=== PATIENT | male | born 1980 | race Caucasian/White ===

== ENCOUNTER 2016-11-15 22:03 | Inpatient (IN) | payer MEDICAID, OTHER ==
[~2016-11-15] VITALS: Ht 170.2 cm; Wt 97.5 kg
[2016-11-15] MEDS ORDERED: morphine 4 MG/ML VIAL IV STA (22:54)
[2016-11-15] MEDS ORDERED: ONDANSETRON 4 MG INJ IV STA (22:54)
[2016-11-15] MEDS ORDERED: SOD CHLORIDE 0.9% 500 ML IV STA (22:54)
[2016-11-15 23:19] LABS: ADD SCAN DIFF NO
[2016-11-15 23:27] LABS: ABNORMAL IP MESSAGE 1; HEMATOCRIT 17.6 % (42.0-52.0); MEAN CORPUSCULAR HEMOGLOBIN 21.8 pg (29.0-33.0); MEAN CORPUSCULAR HGB CONC 27.8 g/dl (32.0-37.0); MEAN CORPUSCULAR VOLUME 78.2 fl (82.0-101.0); MEAN PLATELET VOLUME 11.4 fl (7.4-10.4); PLATELET COUNT 185 10^3/UL (140-415); RED BLOOD COUNT 2.25 10^6/ul (4.70-6.10); RED CELL DISTRIBUTION WIDTH 20.8 % (11.5-14.5); WHITE BLOOD COUNT 16.7 10^3/ul (4.8-10.8)
[2016-11-15 23:35] LABS: HEMOGLOBIN 4.9 g/dl (14.0-18.0)
[2016-11-15 23:39] LABS: ALBUMIN 3.6 g/dl (3.3-4.9); ALBUMIN/GLOBULIN RATIO 1.28; CALCIUM 8.5 mg/dl (8.4-10.2); CREATININE 1.19 mg/dl (0.61-1.24); POTASSIUM 3.9 mmol/L (3.5-5.1); TOTAL PROTEIN 6.4 g/dl (6.1-8.1)
--- NOTE | 2016-11-15 23:46 | RADRPT ---
PROCEDURE: XR Chest. CLINICAL INDICATION: Chest pain. TECHNIQUE: Portable AP upright view of the chest was obtained. COMPARISON: None. FINDINGS: The cardiomediastinal silhouette is within normal limits. The lungs are clear. There is no evidenc e for pleural effusion, pneumothorax or pulmonary vascular congestion. The osseous structures are i ntact with no evidence for acute abnormality. RPTAT:HJJR IMPRESSION: No evidence for acute intrathoracic pathology. Physician Clarisse Date Time Electronically viewed and signed by Physician Clarisse on 11/15/2016 23:45 JR/
[2016-11-15 23:50] LABS: TROPONIN-I 0.051 ng/ml (0.00-0.12)
[2016-11-15] MEDS ORDERED: ONDANSETRON 4 MG INJ IV ONE (23:52)
[2016-11-16] VITALS (22 sets, daily range): BP systolic 81–135; BP diastolic 23–66; PULSE 97–106; RESP 15–19; TEMP 99; Ht 170.2 cm; Wt 97.5 kg
--- NOTE | 2016-11-16 00:24 | RADRPT ---
PROCEDURE: CT abdomen and pelvis without contrast. CLINICAL INDICATION: Abdominal pain TECHNIQUE: CT scan of the abdomen and pelvis without contrast was performed. Sagittal and coronal reformatted images were obtained from the axial source images. CTDI = 20.78 mGy; DLP = 1344.27 mGy- cm COMPARISON: None available. FINDINGS: Visualized lower thorax: The lung bases are clear. There is no evidence for pleural effusion. Liver, gallbladder, pancreas and spleen: Diffuse low attenuation of the liver is compatible with he patic steatosis with elongation of the left hepatic lobe and a slightly nodular contour concerning f or changes of cirrhosis. There is no evidence for a liver mass or ductal dilatation. The gallbladd er is unremarkable. No common bile duct abnormality is demonstrated. The pancreas is unremarkable. Splenomegaly of approximately 16.1 cm maximum dimension is noted. Adrenal glands and genitourinary system: The adrenal glands are normal bilaterally. The kidneys are normal and size, contour and attenuation with no evidence for masses, calculi or hydronephrosis. T he ureters are unremarkable. The urinary bladder is contracted which likely explains the 6 mm wall t hickening, cystitis is difficult to exclude in the proper clinical setting. The prostate gland is n ormal in size. The scrotum shows no abnormality. Gastrointestinal system: Small tubular structures adjacent to the visualized distal esophagus are c oncerning for varices. The stomach is fluid-filled and mildly distended without wall thickening. T he small bowel is normal in caliber with no ileus, obstruction or wall thickening. The appendix and surrounding fat are within the limits of normal. The colon shows no evidence for wall thickening o r acute abnormality. There is no evidence for colitis or diverticulitis. Peritoneum, retroperitoneum, lymph nodes and vessels: The abdominal aorta is normal in caliber. The re is no evidence for atherosclerotic calcification. The inferior vena cava is unremarkable. There is no evidence for adenopathy or mass. There is no ascites. Osseous structures and musculoskeletal findings: There is no fracture, lytic or blastic lesion. De generative disk narrowing at T11-12 and L5-S1 is noted. No muscular abnormality or soft tissue path ology is present. RPTAT:HJJR IMPRESSION: 1. Nodular appearance to the liver is consistent with cirrhosis with portal hypertension and splenom egaly, para esophageal varices are suspected. 2. Mild urinary bladder wall thickening likely related to a partially contracted state but cystitis is difficult to exclude and urinalysis correlation should be considered. 3. Fluid-filled stomach is likely physiologic without evidence of wall thickening to suggest gastri tis, gastroparesis is a possibility in the proper clinical setting. Physician lCarisse Date Time Electronically viewed and signed by Asad Mac Physician on 11/16/2016 00:24 JR/
--- NOTE | 2016-11-16 01:26 | ERA ---
ER Documentation Chief Complaint Date/Time DATE: 11/16/16 TIME: 01:24 Chief Complaint abd pain x 2 days +n/v HPI This is a 28-year-old gentleman because of abdominal pain for 2 days with nausea vomiting. Denies any fevers or chills. Pain is mild to moderate intensity, diffusely located. Denies any other current issues. Denies any changes in stool. Denies any hemorrhoidal issues. No other current complaints. ROS All systems reviewed and are negative except as per history of present illness. Medications Home Meds No Active Prescriptions or Reported Meds Allergies Allergies: Coded Allergies: No Known Allergy (Unverified , 11/15/16) PMhx/Soc Medical and Surgical Hx: pt denies Medical Hx, pt denies Surgical Hx Hx Alcohol Use: Yes (6 BEERS/DAY) Hx Substance Use: No Hx Tobacco Use: No Smoking Status: Never smoker Physical Exam Vitals Vital Signs Date Time Temp Pulse Resp B/P Pulse Ox O2 Delivery O2 Flow Rate FiO2 11/16/16 01:00 124 23 134/75 98 Room Air 11/16/16 00:15 127 14 97/83 100 Room Air 11/15/16 23:38 99.6 129 24 102/65 100 Room Air 11/15/16 22:34 98.6 146 18 136/63 99 Physical Exam Const: [] Head: Atraumatic Eyes: Normal Conjunctiva ENT: Normal External Ears, Nose and Mouth. Neck: Full range of motion..~ No meningismus. Resp: Clear to auscultation bilaterally Cardio: Regular rate and rhythm, no murmurs Abd: Soft, non tender, non distended. Normal bowel sounds Skin: No petechiae or rashes Back: No midline or flank tenderness Ext: No cyanosis, or edema Neur: Awake and alert Psych: Normal Mood and Affect Result Diagram: 11/15/16 2300 11/15/16 2300 Results 24 hrs Laboratory Tests Test 11/15/16 23:00 White Blood Count 16.710^3/ul Red Blood Count 2.2510^6/ul Hemoglobin 4.9g/dl Hematocrit 17.6% Mean Corpuscular Volume 78.2fl Mean Corpuscular Hemoglobin 21.8pg Mean Corpuscular Hemoglobin Concent 27.8g/dl Red Cell Distribution Width 20.8% Platelet Count 10556^3/UL Mean Platelet Volume 11.4fl Neutrophils % % Lymphocytes % % Monocytes % % Eosinophils % % Basophils % % Nucleated Red Blood Cells % /100WBC Neutrophils # 10^3/ul Lymphocytes # 10^3/ul Monocytes # 10^3/ul Eosinophils # 10^3/ul Basophils # 10^3/ul Nucleated Red Blood Cells # 10^3/ul Sodium Level 140mmol/L Potassium Level 3.9mmol/L Chloride Level 103mmol/L Carbon Dioxide Level 14mmol/L Anion Gap 27 Blood Urea Nitrogen 23mg/dl Creatinine 1.19mg/dl Glucose Level 333mg/dl Calcium Level 8.5mg/dl Total Bilirubin 3.0mg/dl Direct Bilirubin 0.00mg/dl Indirect Bilirubin 3.0mg/dl Aspartate Amino Transf (AST/SGOT) 38IU/L Alanine Aminotransferase (ALT/SGPT) 20IU/L Alkaline Phosphatase 68IU/L Troponin I 0.051ng/ml Total Protein 6.4g/dl Albumin 3.6g/dl Globulin 2.80g/dl Albumin/Globulin Ratio 1.28 Lipase 116U/L Current Medications Medications (Trade) Dose Ordered Sig/Micheal Route PRN Reason Start Time Stop Time Status Last Admin Dose Admin Sodium Chloride (NS) 500 ml @ 500 mls/hr Q1H STAT IV 11/15/16 22:54 11/15/16 23:53 DC 11/15/16 23:02 Morphine Sulfate (morphine) 4 mg ONCE STAT IV 11/15/16 22:54 11/15/16 22:57 DC 11/15/16 23:02 Ondansetron HCl (Zofran Inj) 4 mg ONCE STAT IV 11/15/16 22:54 11/15/16 22:57 DC 11/15/16 23:02 Ondansetron HCl (Zofran Inj) 4 mg ONCE ONCE IV 11/15/16 23:52 11/15/16 23:53 DC Procedures/MDM Medical decision making: Patient with evidence of severe anemia likely secondary to acute on chronic lower GI bleed. Patient will be admitted to Dr. Vázquez. Typed and crossed for 3 units here in the emergency department. Departure Diagnosis: Primary Impression: Abdominal pain Qualified Code: R10.9 - Abdominal pain, unspecified location Additional Impression: Anemia Qualified Code: D64.9 - Anemia, unspecified type Condition: Serious MOGHADAM,ZOILA S. Nov 16, 2016 01:26
[2016-11-16 02:41] LABS: BASOPHIL # 0.2 10^3/ul (0.0-0.1); LYMPHOCYTES # 1.8 10^3/ul (0.8-2.9); MONOCYTE # 1.2 10^3/ul (0.3-0.9); NEUTROPHIL # 13.2 10^3/ul (1.6-7.5)
[2016-11-16 02:42] LABS: ANISOCYTOSIS 1+; HYPOCHROMASIA 1+; MICROCYTOSIS 1+
[2016-11-16 02:43] LABS: PLATELET ESTIMATE PLT APPEAR ADEQUATE
[2016-11-16] MEDS ORDERED: ONDANSETRON 4 MG INJ IV PRN ×2 (07:30→19:00)
[2016-11-16] MEDS ORDERED: NACL 0.9% 3 ML SYG IV SCH (07:30)
[2016-11-16] MEDS ORDERED: OCTREOTIDE 50 MCG in SOD CHLORIDE 0.9% 50 ML IVPB ONE (07:30)
[2016-11-16] MEDS ORDERED: LORAZEPAM 2 MG INJ IV PRN ×2 (07:30→19:00)
[2016-11-16] MEDS ORDERED: PANTOPRAZOLE IV 80 MG in SOD CHLORIDE 0.9% 100 ML IVPB ONE (07:30)
[2016-11-16] MEDS ORDERED: morphine 2 MG INJ IV PRN (07:30)
[2016-11-16] MEDS: SOD CHLORIDE 0.9% 1,000 ML IV SCH ×2 (08:13→17:21)
[2016-11-16] MEDS: MULTIVITAMINS 10 ML, THIAMINE 100 MG, FOLIC ACID 1 MG in SOD CHLORIDE 0.9% 1,000 ML IVPB SCH (09:00)
--- NOTE | 2016-11-16 09:03 | HP ---
DATE OF ADMISSION: 11/15/2016 CHIEF COMPLAINT: Gastrointestinal bleed. HISTORY OF PRESENT ILLNESS: The patient is a 36-year-old male with a history of alcohol abuse, no p revious diagnosis of liver cirrhosis. The patient presents with gastrointestinal bleed for the past several days as well as melena. The patient has no reported history of GI bleed in the past. He s tates that he has been drinking heavily for the past few days, but in general has been drinking heav amada for the past several years. In the ED, the patient was found to be anemic with hemoglobin of 4. 9. The patient currently states that his nausea has improved. The patient does report some mild lo ose stools. Once again, patient also endorsed some melena. PAST MEDICAL HISTORY: Alcohol abuse, otherwise negative. PAST SURGICAL HISTORY: Denies. HOME MEDICATIONS: None reported. ALLERGIES: NO KNOWN DRUG ALLERGIES. FAMILY HISTORY: Denies. SOCIAL HISTORY: Alcohol abuse, denies tobacco or drug abuse. REVIEW OF SYSTEMS: A 12-point review of systems negative except that discussed in HPI. PHYSICAL EXAMINATION: VITAL SIGNS: Temperature is 99.0, pulse 129, respiratory rate 15, BP is 136/80, saturation 100% on room air. GENERAL: Mild distress, alert and oriented. HEENT: Normocephalic, atraumatic. LUNGS: Clear to auscultation. CARDIOVASCULAR: Regular rate and rhythm. ABDOMEN: Nondistended, nontender, soft, obese. EXTREMITIES: No clubbing, cyanosis, or edema. LABORATORY TESTS: White count 16.7, hemoglobin 4.9, platelets are at 185. Chemistry within normal limits except for carbon dioxide is 14, anion gap is 27, BUN is 23, glucose 333, total bilirubin is 3.0. DIAGNOSTICS: Chest x-ray shows no evidence of acute intrathoracic pathology. Abdominal pelvis CT l arge appearance of the liver consistent with cirrhosis, portal hypertension, splenomegaly, paraesoph ageal varices are suspected, bladder wall thickening likely related to partially contracted , d ifficult to exclude. Urinalysis correlation should be considered. Fluid-filled stomach is likely p hysiological, without evidence of wall thickening suggesting gastritis, gastroparesis possibility in the setting. ASSESSMENT AND PLAN: 1. Upper gastrointestinal bleed, likely secondary to esophageal varices from portal hypertension fr om underlying alcohol abuse. We will consult GI. We will start the patient on Protonix and octreot irma. 2. Severe anemia secondary to gastrointestinal bleed. Will transfuse 2 units packed red blood cell s. 3. Liver cirrhosis secondary to alcohol abuse. Patient has been advised he needs to stop drinking. 4. Leukocytosis, likely reactive, but will obtain a UA to rule out cystitis. 5. Anion gap acidosis likely secondary to lactic acidosis. Will check lactic level. 6. Hyperglycemia, could be reactive, but will evaluate for diabetes. Patient has no reported histo ry of diabetes. 7. Prophylaxis. SCDs. Dictated By: JOSE HU MD BS/NTS Conf#: [id number] DID#: [id number]
[2016-11-16] MEDS: OCTREOTIDE 1 MG in SOD CHLORIDE 0.9% 95 ML IV SCH (09:21)
[2016-11-16] MEDS: PANTOPRAZOLE IV 80 MG in SOD CHLORIDE 0.9% 100 ML IV SCH ×2 (09:31→18:00)
[2016-11-16 10:29] LABS: AADO2 Arterial 36.7 mmHg (7.0-24.0); Allen Test ACCEPTAB; Arterial Base Excess -4.3 mmol/L (-3.0-3); Arterial COHb 0.5 % (0.0-3.0); Arterial Fraction of Oxyhgb 94.3 % (93.0-99.0); Arterial HCO3 18.7 mmol/L (22.0-26.0); Arterial MetHb 0.5 % (0.0-1.5); Arterial Total Hemglobin 6.9 g/dl (12.0-18.0); MODE ROOM AIR
[2016-11-16] MEDS ORDERED: GLUCOSE GEL 15 GRAM TUBE PO PRN ×2 (10:30)
[2016-11-16] MEDS ORDERED: DEXTROSE 50% 50 ML SYRINGE IV PRN ×2 (10:30)
[2016-11-16] MEDS ORDERED: GLUCAGON 1 MG INJ IM PRN (10:30)
[2016-11-16] MEDS ORDERED: GLUCOSE GEL 15 GRAM TUBE BUCCAL PRN (10:30)
--- NOTE | 2016-11-16 15:02 | CONS ---
Date/Time of Note Date/Time of Note DATE: 11/16/16 TIME: 14:43 Assessment/Plan Assessment/Plan Additional Assessment/Plan Assessment * Hematemesis/Anemia T/C Esophageal varices bleeding vs peptic ulcer disease vs others * Cirrhosis,liver CT scan Nodular appearance to the liver is consistent with cirrhosis with portal hypertension and splenomegaly, para esophageal varices are suspected. Plan * EGD today risks and benefit explained to patient and agreed with the planned procedure * PPI drip * Octreotide drip * Monitor Hemoglobin and hematocrit Q6 and transfuse per protocol Consultation Date/Type/Reason Admit Date/Time Date of Consultation: Nov 16, 2016 Type of Consultation: Gastroenterology Reason for Consultation anemia/upper gi bleed Referring Provider: NAN HERNANDEZ of Present Illness 36 year old male who presented in the emergency room because of vomiting of blood for the past 3 days with associated abdominal pain.Hematemesis was about 3 tbs per bout occurring for the pst 3 days hence consult.He is a heavy drinker consuming 8 bottles of beer daily for the past 3 years.He had multiple episodes of hematemesis but has not been diagnosed with Cirrhosis Emergency room course revealed anemia with hemoglobin of 4.9 and blood transfusion has been started. Ct scan of abdomen . Nodular appearance to the liver is consistent with cirrhosis with portal hypertension and splenomegaly, para esophageal varices are suspected. . Mild urinary bladder wall thickening likely related to a partially contracted state but cystitis is difficult to exclude and urinalysis correlation should be considered. Fluid-filled stomach is likely physiologic without evidence of wall thickening to suggest gastritis, gastroparesis is a possibility in the proper clinical setting. Presently,patient denies abdominal pain,no episodes of of hematemesis.denies any hematochezia,chest pain nor shortness of breath. We explained the planned procedure and patient agreed with the planned procedure Constitutional: improved, no complaints Eyes: no complaints ENT: no complaints Respiratory: no complaints Cardiovascular: no complaints Gastrointestinal: blood, flatus, vomiting Genitourinary: no complaints Musculoskeletal: no complaints Skin: no complaints Neurologic: no complaints Endocrine: no complaints Lymphatic: no complaints Psychological: nl mood/affect, no complaints Immunologic: no complaints Past Surgical History Past Surgical Hx: no surgical history Family History Significant Family History: no pertinent family hx Social History Alcohol Use: heavy (8 bottles of beer daily x 3 years) Smoking Status: Never smoker Exam/Review of Systems Vital Signs Vitals Vital Signs Date Time Temp Pulse Resp B/P Pulse Ox O2 Delivery O2 Flow Rate FiO2 11/16/16 11:15 99.9 150 24 137/81 100 Room Air Intake and Output 11/15/16 11/15/16 11/16/16 15:00 23:00 07:00 Intake Total 500 ml Balance 500 ml Exam Constitutional: alert, oriented, well developed Psych: nl mood/affect, no complaints Head: atraumatic, normocephalic Eyes: EOMI, PERRL, nl conjunctiva, nl lids, nl sclera ENMT: nl external ears & nose, nl lips & teeth, nl nasal mucosa & septum Neck: non-tender, supple Respiratory: clear to auscultation, normal air movement Cardiovascular: nl pulses, regular rate and rhythm Gastrointestinal: nl liver, spleen, non-tender, soft Musculoskeletal: nl extremities to inspection, nl gait and stance Extremities: normal pulses Neurological: MODELING AGENCY MANAGER II-XII intact, nl mental status, nl speech, nl strength Skin: nl turgor, No rash or lesions Lymph: nl lymph nodes Results Result Diagram: 11/15/16 2300 11/15/16 2300 Results 24 hrs Laboratory Tests Test 11/15/16 23:00 11/16/16 08:19 11/16/16 09:48 White Blood Count 16.7 H Red Blood Count 2.25 L Hemoglobin 4.9 *L Hematocrit 17.6 L Mean Corpuscular Volume 78.2 L Mean Corpuscular Hemoglobin 21.8 L Mean Corpuscular Hemoglobin Concent 27.8 L Red Cell Distribution Width 20.8 H Platelet Count 185 Mean Platelet Volume 11.4 H Neutrophils % 79.0 H Band Neutrophils % 2.0 Lymphocytes % 11.0 L Monocytes % 7.0 Eosinophils % Basophils % 1.0 Nucleated Red Blood Cells % Neutrophils # 13.2 H Lymphocytes # 1.8 Monocytes # 1.2 H Eosinophils # Basophils # 0.2 H Nucleated Red Blood Cells # Platelet Estimate PLT APPEAR ADEQUATE Hypochromasia 1+ Anisocytosis 1+ Microcytosis 1+ Macrocytosis 1+ Sodium Level 140 Potassium Level 3.9 Chloride Level 103 Carbon Dioxide Level 14 L Anion Gap 27 H Blood Urea Nitrogen 23 H Creatinine 1.19 Glucose Level 333 H Calcium Level 8.5 Total Bilirubin 3.0 H Direct Bilirubin 0.00 Indirect Bilirubin 3.0 H Aspartate Amino Transf (AST/SGOT) 38 Alanine Aminotransferase (ALT/SGPT) 20 Alkaline Phosphatase 68 Troponin I 0.051 Total Protein 6.4 Albumin 3.6 Globulin 2.80 Albumin/Globulin Ratio 1.28 Lipase 116 Lactic Acid Level 8.9 *H Blood Gas Specimen Source Blood arterial Arterial Blood Date Drawn 11/16/2016 10:05:40 AM Arterial Blood pH (Temp corrected) 7.478 H Arterial Blood pCO2 (Temp correct) 25.8 L Arterial Blood pO2 (Temp corrected) 82.1 Arterial Blood HCO3 18.7 L Arterial Blood Base Excess -4.3 L Arterial Blood Oxygen Saturation 95.3 Keyshawn Test ACCEPTAB Arterial Blood Gas Puncture Site Right Radial Arterial Blood Carboxyhemoglobin 0.5 Arterial Blood Methemoglobin 0.5 Blood Gas A-a O2 Differential 36.7 H Oxyhemoglobin Percent 94.3 Total Hemoglobin 6.9 L Blood Gas Temperature 37.0 Blood Gas Modality ROOM AIR FiO2 21.0 Blood Gas Notified Whom JLD Blood Gas Notified Time 11/16/2016 10:29:13 AM Medications Medications Current Medications Sodium Chloride (NS) 1,000 ml @ 100 mls/hr Q10H IV Last administered on 08:13; Admin Dose 100 MLS/HR; Start 11/16/16 at 07:21 Ondansetron HCl (Zofran Inj) 4 mg Q6H PRN IV NAUSEA AND/OR VOMITING; Start at 07:30 Morphine Sulfate 2 mg 2 mg Q4H PRN IV SEVERE PAIN LEVEL 7-10; Start 11/16/16 at 07:30 Pantoprazole 80 mg/Sodium Chloride 100 ml @ 10 mls/hr Q10H IV Last administered on 11/16/16 09:31; Admin Dose 10 MLS/HR; Start 11/16/16 at 08:00 Octreotide Acetate 1 mg/ Sodium Chloride 100 ml @ 5 mls/hr Q20H IV Last administered on 11/16/16 09:21; Admin Dose 5 MLS/HR; Start 11/16/16 at 08:00 Multivitamins/ Thiamine HCl/ Folic Acid/Sodium Chloride (Mvi Adult/ Vitamin B1/ Folic Acid/NS) 1,011.2 ml @ 125 mls/ hr DAILY@09 IVPB ; Start 11/16/16 at 09:00 ; Stop 11/18/16 at 17:06 Lorazepam (Ativan) 1 mg Q4 PRN IV CONTROL WITHDRAWAL SYMPTOMS; Start 11/16/16 at 07:30 Insulin Glargine (Lantus) 10 unit DAILY@08 SC ; Start 11/17/16 at 08:00 Miscellaneous Information 1 ea NOTE XX ; Start 11/16/16 at 10:30 Glucose (Glutose) 15 gm Q15M PRN PO DECREASED GLUCOSE; Start 11/16/16 at 10:30 Glucose (Glutose) 22.5 gm Q15M PRN PO DECREASED GLUCOSE; Start 11/16/16 at 10: 30 Dextrose (D50w Syringe) 25 ml Q15M PRN IV DECREASED GLUCOSE; Start 11/16/16 at 10:30 Dextrose (D50w Syringe) 50 ml Q15M PRN IV DECREASED GLUCOSE; Start 11/16/16 at 10:30 Glucagon (Glucagen) 1 mg Q15M PRN IM DECREASED GLUCOSE; Start 11/16/16 at 10:30 Glucose (Glutose) 15 gm Q15M PRN BUCCAL DECREASED GLUCOSE; Start 11/16/16 at 10 :30 Diagnostic Test (Pha) (Accu-Chek) 1 ea 02 XX ; Start 11/17/16 at 02:00 ASIM ROMO MD Nov 16, 2016 14:56
[2016-11-16] MEDS: CEFEPIME 2GM/50 ML (PMX) 50 ML IVPB SCH (17:00)
--- NOTE | 2016-11-16 17:00 | PN ---
Date/Time of Note Date/Time of Note DATE: 11/16/16 TIME: 16:51 Assessment/Plan Assessment/Plan Chief Complaint/Hosp Course Assessment and plan 1. Hematemesis suspect secondary to esophageal varices. Patient with alcohol abuse. Marine Services Technician to following. Continue on Protonix and octreotide. Tentative plan for EGD. 2. Severe anemia secondary to #1. Patient transfused PRBC. Will transfuse as needed. Plan for EGD for GI bleed. 3. Liver cirrhosis secondary to alcohol abuse. Cessation was advised. Of note patient did have nodular appearance of liver consistent with cirrhosis and portal hypertension and spinal megaly paraesophageal varices. 4. Leukocytosis. . Follow-up on urinalysis and culture. Etiology unknown. Start on antibiotics empirically. Also noted with fever and tachycardia 5. Hyperglycemia. Follow-up on A1c. Provide with insulin regimen for now. 6. Lactic acidosis suspect secondary to #1. Follow-up trend. Disposition plan: Tentative plan for EGD. On antibiotics for now. We will follow-up Discussed plan of care with Dr. Block Problems: Subjective 24 Hr Interval Summary Free Text/Dictation Still with reported hematemesis. Denies any chest pain or shortness of Exam/Review of Systems Vital Signs Vitals Vital Signs Date Time Temp Pulse Resp B/P Pulse Ox O2 Delivery O2 Flow Rate FiO2 11/16/16 16:28 99.0 103 16 97/58 96 Room Air Intake and Output 11/15/16 11/15/16 11/16/16 14:59 22:59 06:59 Intake Total 500 ml Balance 500 ml Exam Constitutional: alert, obese, oriented Psych: nl mood/affect Head: normocephalic Neck: supple Respiratory: clear to auscultation, normal air movement Cardiovascular: regular rate and rhythm Musculoskeletal: No swelling Neurological: MANAGER SPECIALTY II-XII intact, nl mental status, nl speech Results Result Diagram: 11/15/16 2300 11/15/16 2300 Results 24 hrs Laboratory Tests Test 11/15/16 23:00 11/16/16 08:19 11/16/16 09:48 White Blood Count 16.7 H Red Blood Count 2.25 L Hemoglobin 4.9 *L Hematocrit 17.6 L Mean Corpuscular Volume 78.2 L Mean Corpuscular Hemoglobin 21.8 L Mean Corpuscular Hemoglobin Concent 27.8 L Red Cell Distribution Width 20.8 H Platelet Count 185 Mean Platelet Volume 11.4 H Neutrophils % 79.0 H Band Neutrophils % 2.0 Lymphocytes % 11.0 L Monocytes % 7.0 Eosinophils % Basophils % 1.0 Nucleated Red Blood Cells % Neutrophils # 13.2 H Lymphocytes # 1.8 Monocytes # 1.2 H Eosinophils # Basophils # 0.2 H Nucleated Red Blood Cells # Platelet Estimate PLT APPEAR ADEQUATE Hypochromasia 1+ Anisocytosis 1+ Microcytosis 1+ Macrocytosis 1+ Sodium Level 140 Potassium Level 3.9 Chloride Level 103 Carbon Dioxide Level 14 L Anion Gap 27 H Blood Urea Nitrogen 23 H Creatinine 1.19 Glucose Level 333 H Calcium Level 8.5 Total Bilirubin 3.0 H Direct Bilirubin 0.00 Indirect Bilirubin 3.0 H Aspartate Amino Transf (AST/SGOT) 38 Alanine Aminotransferase (ALT/SGPT) 20 Alkaline Phosphatase 68 Troponin I 0.051 Total Protein 6.4 Albumin 3.6 Globulin 2.80 Albumin/Globulin Ratio 1.28 Lipase 116 Lactic Acid Level 8.9 *H Blood Gas Specimen Source Blood arterial Arterial Blood Date Drawn 11/16/2016 10:05:40 AM Arterial Blood pH (Temp corrected) 7.478 H Arterial Blood pCO2 (Temp correct) 25.8 L Arterial Blood pO2 (Temp corrected) 82.1 Arterial Blood HCO3 18.7 L Arterial Blood Base Excess -4.3 L Arterial Blood Oxygen Saturation 95.3 Keyshawn Test ACCEPTAB Arterial Blood Gas Puncture Site Right Radial Arterial Blood Carboxyhemoglobin 0.5 Arterial Blood Methemoglobin 0.5 Blood Gas A-a O2 Differential 36.7 H Oxyhemoglobin Percent 94.3 Total Hemoglobin 6.9 L Blood Gas Temperature 37.0 Blood Gas Modality ROOM AIR FiO2 21.0 Blood Gas Notified Whom PETROSD Blood Gas Notified Time 11/16/2016 10:29:13 AM Medications Medications Current Medications Sodium Chloride (NS) 1,000 ml @ 100 mls/hr Q10H IV Last administered on t 08:13; Admin Dose 100 MLS/HR; Start 11/16/16 at 07:21 Ondansetron HCl (Zofran Inj) 4 mg Q6H PRN IV NAUSEA AND/OR VOMITING; Start at 07:30 Morphine Sulfate 2 mg 2 mg Q4H PRN IV SEVERE PAIN LEVEL 7-10; Start 11/16/16 at 07:30 Pantoprazole 80 mg/Sodium Chloride 100 ml @ 10 mls/hr Q10H IV Last administered on 11/16/16 09:31; Admin Dose 10 MLS/HR; Start 11/16/16 at 08:00 Octreotide Acetate 1 mg/ Sodium Chloride 100 ml @ 5 mls/hr Q20H IV Last administered on 11/16/16 09:21; Admin Dose 5 MLS/HR; Start 11/16/16 at 08:00 Multivitamins/ Thiamine HCl/ Folic Acid/Sodium Chloride (Mvi Adult/ Vitamin B1/ Folic Acid/NS) 1,011.2 ml @ 125 mls/ hr DAILY@09 IVPB ; Start 11/16/16 at 09:00 ; Stop 11/18/16 at 17:06 Lorazepam (Ativan) 1 mg Q4 PRN IV CONTROL WITHDRAWAL SYMPTOMS; Start 11/16/16 at 07:30 Insulin Glargine (Lantus) 10 unit DAILY@08 SC ; Start 11/17/16 at 08:00 Miscellaneous Information 1 ea NOTE XX ; Start 11/16/16 at 10:30 Glucose (Glutose) 15 gm Q15M PRN PO DECREASED GLUCOSE; Start 11/16/16 at 10:30 Glucose (Glutose) 22.5 gm Q15M PRN PO DECREASED GLUCOSE; Start 11/16/16 at 10: 30 Dextrose (D50w Syringe) 25 ml Q15M PRN IV DECREASED GLUCOSE; Start 11/16/16 at 10:30 Dextrose (D50w Syringe) 50 ml Q15M PRN IV DECREASED GLUCOSE; Start 11/16/16 at 10:30 Glucagon (Glucagen) 1 mg Q15M PRN IM DECREASED GLUCOSE; Start 11/16/16 at 10:30 Glucose (Glutose) 15 gm Q15M PRN BUCCAL DECREASED GLUCOSE; Start 11/16/16 at 10 :30 Diagnostic Test (Pha) (Accu-Chek) 1 ea 02 XX ; Start 11/17/16 at 02:00 NAN HERNANDEZ Nov 16, 2016 17:00
[2016-11-16 17:58] LABS: HEMATOCRIT 20.8 % (42.0-52.0)
[2016-11-16 18:02] LABS: HEMOGLOBIN 6.5 g/dl (14.0-18.0)
[2016-11-16] MEDS: INSULIN ASPART [NOVOLOG] 3 ML PEN SC SCH ×3 (18:05→23:50)
[2016-11-16] MEDS ORDERED: PROPOFOL 20 ML ONE (18:13)
[2016-11-16] MEDS ORDERED: LIDOCAINE 2% (SDV) 5 ML INJ ONE (18:13)
[2016-11-16] MEDS ORDERED: MIDAZOLAM 1 MG/ML 2 ML INJ ONE ×2 (18:13)
[2016-11-16] MEDS ORDERED: FENTAnyl 50 MCG/ML VIAL IV PRN (19:00)
[2016-11-16] MEDS ORDERED: PROCHLORPERAZINE 10 MG INJ IV PRN (19:00)
[2016-11-16] MEDS ORDERED: DIPHENHYDRAMINE 50 MG INJ IV PRN (19:00)
[2016-11-16] MEDS ORDERED: METOCLOPRAMIDE 10 MG INJ IV PRN (19:00)
[2016-11-16] MEDS ORDERED: MEPERIDINE 25 MG INJ IV PRN (19:00)
[2016-11-17] VITALS (11 sets, daily range): BP systolic 109–121; BP diastolic 58–62; PULSE 83–99; RESP 17–18
--- NOTE | 2016-11-17 00:09 | GILP ---
DATE OF PROCEDURE: NAME OF PROCEDURE: Esophagogastroduodenoscopy with endoscopic variceal ligation and also esophagoga stroduodenoscopy with biopsies. SURGEON: Asim Galindo MD PREMEDICATION: Monitored anesthesia care by anesthesiologist. INSTRUMENT USED: Olympus panendoscope. TECHNIQUE: After informed consent, with the patient/relatives understanding the procedure, its regla cations, potential risks and complications including but not limited to allergic reaction, bleeding, perforation or infection, and after all pertinent questions were answered to the patient's satisfac tion, the patient/relatives signed witnessed informed consent. Following this, premedication was administered slowly IV push under careful cardiovascular and respi ratory monitoring with pulse oximetry, automatic blood pressure and youth nutritional monitor. Once the sedative effect was achieved, the patient was placed in the left lateral decubitus. The pa nendoscope was introduced and advanced under visual control. Careful examination of the upper gastrointestinal tract both on insertion as well as withdrawal of t he instrument disclosed the following findings: ESOPHAGUS: The esophagus shows grade III/IV esophageal varices with no evidence of active bleeding but positive stigmata of recent bleeding. STOMACH: Upon entrance to the stomach, air was insufflated. The gastric quinones distended normally. There is erythema and edema of the mucosa throughout. A single biopsy was obtained to rule out H. pylori infection. PYLORUS: The pylorus appears patent and within normal limits, with no evidence of gastric outlet ob struction. DUODENUM: The duodenal mucosa was carefully examined in the duodenal bulb as well as the second por tion of the duodenum and appears unremarkable with no evidence of duodenitis, ulcer or neoplasm. At this point, instrument was withdrawn. The banding device was attached to the tip of the endoscop e, and the tip of the endoscope was then re-introduced. Endoscopic variceal ligation was applied wi thout difficulty to the most prominent variceal channels without difficulty or complication. The instrument was then withdrawn. The patient tolerated the procedure well and was transferred out of the endoscopy suite awake and in good condition to continue recovery under observation. IMPRESSION: 1. Grade III/IV esophageal varices, post endoscopic variceal ligation x7. 2. Gastritis, rule out Helicobacter pylori infection. Biopsies obtained. PLAN: The patient will be placed on Protonix and octreotide drip, and further recommendations will depend on the patient's clinical course. Dictated By: ASIM GALINDO MS/NTS Conf#: [id number] DID#: [id number]
[2016-11-17 01:00] LABS: HEMATOCRIT 20.4 % (42.0-52.0)
[2016-11-17 01:12] LABS: HEMOGLOBIN 6.4 g/dl (14.0-18.0)
[2016-11-17] MEDS: ACCU-CHEK XX SCH (02:00)
[2016-11-17] MEDS: SOD CHLORIDE 0.9% 1,000 ML IV SCH ×3 (03:21→23:21)
[2016-11-17] MEDS: OCTREOTIDE 1 MG in SOD CHLORIDE 0.9% 95 ML IV SCH (04:00)
[2016-11-17] MEDS: PANTOPRAZOLE IV 80 MG in SOD CHLORIDE 0.9% 100 ML IV SCH (04:00)
[2016-11-17] MEDS ORDERED: INSULIN GLARGINE [LANtus] 3 ML PEN SC SCH (08:00)
[2016-11-17] MEDS: MULTIVITAMINS 10 ML, THIAMINE 100 MG, FOLIC ACID 1 MG in SOD CHLORIDE 0.9% 1,000 ML IVPB SCH (08:35)
[2016-11-17] MEDS: CEFEPIME 2GM/50 ML (PMX) 50 ML IVPB SCH (08:35)
[2016-11-17] MEDS: INSULIN ASPART [NOVOLOG] 3 ML PEN SC SCH ×6 (08:38→21:00)
[2016-11-17 11:19] LABS: ADD SCAN DIFF NO
[2016-11-17 11:22] LABS: ABNORMAL IP MESSAGE 1; BASOPHILS % 0.3 % (0.0-2.0); EOSINOPHILS # 0.1 10^3/ul (0.0-0.5); EOSINOPHILS % 1.5 % (0.0-7.0); HEMATOCRIT 21.2 % (42.0-52.0); LYMPHOCYTES # 1.3 10^3/ul (0.8-2.9); MEAN CORPUSCULAR HEMOGLOBIN 26.1 pg (29.0-33.0); MEAN CORPUSCULAR HGB CONC 31.1 g/dl (32.0-37.0); MEAN CORPUSCULAR VOLUME 83.8 fl (82.0-101.0); MEAN PLATELET VOLUME 11.6 fl (7.4-10.4); MONOCYTE # 0.9 10^3/ul (0.3-0.9); MONOCYTES % 11.2 % (0.0-11.0); NEUTROPHIL # 5.5 10^3/ul (1.6-7.5); NEUTROPHILS % 69.2 % (39.0-77.0); NUCLEATED RED BLOOD CELLS% 0.5 /100WBC (0.0-0.0); PLATELET COUNT 76 10^3/UL (140-415); RED BLOOD COUNT 2.53 10^6/ul (4.70-6.10); RED CELL DISTRIBUTION WIDTH 19.5 % (11.5-14.5); WHITE BLOOD COUNT 7.9 10^3/ul (4.8-10.8)
[2016-11-17 11:36] LABS: HEMOGLOBIN 6.6 g/dl (14.0-18.0)
[2016-11-17 11:39] LABS: IRON 20 ug/dl (35-150)
[2016-11-17 11:45] LABS: ALBUMIN 2.7 g/dl (3.3-4.9); ALBUMIN/GLOBULIN RATIO 1.17; BILIRUBIN,DIRECT 0.1 mg/dl (0.00-0.20); BILIRUBIN,TOTAL 2.1 mg/dl (0.2-1.3); CREATININE 1.08 mg/dl (0.61-1.24); MAGNESIUM 2.2 mg/dl (1.7-2.5); POTASSIUM 3.7 mmol/L (3.5-5.1)
[2016-11-17 11:48] LABS: TOTAL IRON BINDING CAPACITY 329 ug/dl (241-421)
[2016-11-17 12:53] LABS: HEMATOCRIT 21.3 % (42.0-52.0)
[2016-11-17] MEDS ORDERED: SOD CHLORIDE 0.9% 250 ML IV* ONE (12:56)
[2016-11-17 13:01] LABS: HEMOGLOBIN 6.7 g/dl (14.0-18.0)
[2016-11-17] MEDS: FERROUS SULFATE (EC) 325 MG TAB PO SCH ×2 (13:33→21:00)
--- NOTE | 2016-11-17 14:27 | PN ---
Date/Time of Note Date/Time of Note DATE: 11/17/16 TIME: 14:22 Assessment/Plan VTE Prophylaxis VTE Prophylaxis Intervention: contraindicated Lines/Catheters IV [facility]ter Type (from [facility]): Peripheral IV Urinary Cath still in place: No Assessment/Plan Assessment/Plan Assessment * Hematemesis/Anemia Esophageal varices S/P EGD banding x7 * Cirrhosis,liver CT scan Nodular appearance to the liver is consistent with cirrhosis with portal hypertension and splenomegaly, para esophageal varices are suspected. Plan * * shift ppi drip to iv protonix * clear liquids * Octreotide drip * Monitor Hemoglobin and hematocrit Q6 and transfuse per protocol * Further orders will depend on clinical course * Case discussed with Subjective 24 Hr Interval Summary Free Text/Dictation * course reviewed with RN * Patient seen and examined * EGD * . Grade III/IV esophageal varices, post endoscopic variceal ligation x7. . Gastritis, rule out Helicobacter pylori infection. Biopsies obtained. Exam/Review of Systems Vital Signs Vitals Vital Signs Date Time Temp Pulse Resp B/P Pulse Ox O2 Delivery O2 Flow Rate FiO2 11/17/16 12:05 94 11/17/16 12:03 98.1 18 116/61 98 11/16/16 19:43 Nasal Cannula 11/16/16 18:51 2.0 Intake and Output 11/16/16 11/16/16 11/17/16 15:00 23:00 07:00 Intake Total 151 ml Balance 151 ml Exam Constitutional: alert, oriented Head: atraumatic, normocephalic Eyes: PERRL Neck: non-tender, supple Respiratory: clear to auscultation, normal air movement Cardiovascular: nl pulses, regular rate and rhythm Gastrointestinal: distended, non-tender, soft Musculoskeletal: nl extremities to inspection, nl gait and stance Neurological: nl mental status, nl speech Skin: nl turgor, No rash or lesions Lymph: nl lymph nodes Results Result Diagram: 11/17/16 1240 11/17/16 1050 Results 24 hrs Laboratory Tests Test 11/16/16 17:35 11/16/16 19:00 11/16/16 23:45 11/17/16 00:20 Hemoglobin 6.5 #*L 6.4 *L Hematocrit 20.8 L 20.4 L Lactic Acid Level 4.1 *H Bedside Glucose 314 H 268 H Test 11/17/16 03:18 11/17/16 08:09 11/17/16 10:50 11/17/16 11:58 Bedside Glucose 255 H 257 H White Blood Count 7.9 # Red Blood Count 2.53 L Hemoglobin 6.6 *L Hematocrit 21.2 L Mean Corpuscular Volume 83.8 Mean Corpuscular Hemoglobin 26.1 L Mean Corpuscular Hemoglobin Concent 31.1 L Red Cell Distribution Width 19.5 H Platelet Count 76 #L Mean Platelet Volume 11.6 H Neutrophils % 69.2 Lymphocytes % 17.0 Monocytes % 11.2 H Eosinophils % 1.5 Basophils % 0.3 Nucleated Red Blood Cells % 0.5 H Neutrophils # 5.5 Lymphocytes # 1.3 Monocytes # 0.9 Eosinophils # 0.1 Basophils # 0.0 Nucleated Red Blood Cells # 0.0 Sodium Level 139 Potassium Level 3.7 Chloride Level 109 Carbon Dioxide Level 25 # Anion Gap 9 # Blood Urea Nitrogen 37 #H Creatinine 1.08 Glucose Level 214 # Lactic Acid Level 1.4 Calcium Level 7.0 L Phosphorus Level 3.0 Magnesium Level 2.2 Iron Level 20 L Total Iron Binding Capacity 329 Percent Iron Saturation 6 L Total Bilirubin 2.1 H Direct Bilirubin 0.10 Indirect Bilirubin 2.0 H Aspartate Amino Transf (AST/SGOT) 63 #H Alanine Aminotransferase (ALT/SGPT) 41 Alkaline Phosphatase 46 Total Protein 5.0 #L Albumin 2.7 L Globulin 2.30 Albumin/Globulin Ratio 1.17 Lab Scanned Report BLOOD TRANSFUSION Test 11/17/16 11:58 11/17/16 12:16 11/17/16 12:40 Lab Scanned Report BLOOD TRANSFUSION Bedside Glucose 220 Hemoglobin 6.7 *L Hematocrit 21.3 L Medications Medications Current Medications Sodium Chloride (NS) 1,000 ml @ 100 mls/hr Q10H IV Last administered on t 13:34; Admin Dose 100 MLS/HR; Start 11/16/16 at 07:21 Ondansetron HCl (Zofran Inj) 4 mg Q6H PRN IV NAUSEA AND/OR VOMITING; Start at 07:30 Morphine Sulfate 2 mg 2 mg Q4H PRN IV SEVERE PAIN LEVEL 7-10; Start 11/16/16 at 07:30 Pantoprazole 80 mg/Sodium Chloride 100 ml @ 10 mls/hr Q10H IV Last administered on 11/17/16 04:00; Admin Dose 10 MLS/HR; Start 11/16/16 at 08:00 Octreotide Acetate 1 mg/ Sodium Chloride 100 ml @ 5 mls/hr Q20H IV Last administered on 11/17/16 04:00; Admin Dose 5 MLS/HR; Start 11/16/16 at 08:00 Multivitamins/ Thiamine HCl/ Folic Acid/Sodium Chloride (Mvi Adult/ Vitamin B1/ Folic Acid/NS) 1,011.2 ml @ 125 mls/ hr DAILY@09 IVPB Last administered on 08:35; Admin Dose 125 MLS/HR; Start 11/16/16 at 09:00; Stop 11/18/16 at 17:06 Lorazepam (Ativan) 1 mg Q4 PRN IV CONTROL WITHDRAWAL SYMPTOMS; Start 11/16/16 at 07:30 Miscellaneous Information 1 ea NOTE XX ; Start 11/16/16 at 10:30 Glucose (Glutose) 15 gm Q15M PRN PO DECREASED GLUCOSE; Start 11/16/16 at 10:30 Glucose (Glutose) 22.5 gm Q15M PRN PO DECREASED GLUCOSE; Start 11/16/16 at 10: 30 Dextrose (D50w Syringe) 25 ml Q15M PRN IV DECREASED GLUCOSE; Start 11/16/16 at 10:30 Dextrose (D50w Syringe) 50 ml Q15M PRN IV DECREASED GLUCOSE; Start 11/16/16 at 10:30 Glucagon (Glucagen) 1 mg Q15M PRN IM DECREASED GLUCOSE; Start 11/16/16 at 10:30 Glucose (Glutose) 15 gm Q15M PRN BUCCAL DECREASED GLUCOSE; Start 11/16/16 at 10 :30 Diagnostic Test (Pha) 1 ea 1 ea 02 XX ; Start 11/17/16 at 02:00 Cefepime HCl (Maxipime 2gm/50 ml (Pmx)) 50 ml @ 100 mls/hr DAILY IVPB Last administered on 11/17/16 08:35; Admin Dose 100 MLS/HR; Start 11/16/16 at 17:00 Insulin Glargine (Lantus) 20 unit DAILY@08 SC ; Start 11/18/16 at 08:00 Ferrous Sulfate (Ferrous Sulfate (Ec)) 325 mg TID PO Last administered on t 13:33; Admin Dose 325 MG; Start 11/17/16 at 13:00 PHIL FRANKLIN NP Nov 17, 2016 14:27
--- NOTE | 2016-11-17 15:32 | PN ---
Date/Time of Note Date/Time of Note DATE: 11/17/16 TIME: 15:30 Assessment/Plan VTE Prophylaxis VTE Prophylaxis Intervention: SCD's Lines/Catheters IV C[facility]ter Type (from [facility] Peripheral IV Urinary Cath still in place: No Assessment/Plan Chief Complaint/Hosp Course Assessment and plan 1. Hematemesis suspect secondary to esophageal varices. Patient with alcohol abuse. Elastic Attacher Overlock following. Status post EGD with banding of varices. Transfuse PRBC for anemia 2. Severe anemia secondary to #1. We will transfuse again for anemia 3. Liver cirrhosis secondary to alcohol abuse. Cessation was advised. Of note patient did have nodular appearance of liver consistent with cirrhosis and portal hypertension and paraesophageal varices 4. Leukocytosis. . Likely reactive. Improving at present. Continue on antibiotic 5. Hyperglycemia. Will adjust insulin regimen. Will get early childhood educator aide. Follow-up on A1c level 6. Lactic acidosis suspect secondary to #1. Improved at present. Will monitor 7. Iron deficiency anemia. Will provide with iron supplement Disposition plan: Still noted to be anemic. Will transfuse PRBC today. Discussed plan of care with Dr. Block Problems: Subjective 24 Hr Interval Summary Free Text/Dictation No abdominal pain reported at this time. Appears comfortable at present Exam/Review of Systems Vital Signs Vitals Vital Signs Date Time Temp Pulse Resp B/P Pulse Ox O2 Delivery O2 Flow Rate FiO2 11/17/16 12:05 94 11/17/16 12:03 98.1 18 116/61 98 11/16/16 19:43 Nasal Cannula 11/16/16 18:51 2.0 Intake and Output 11/16/16 11/16/16 11/17/16 15:00 23:00 07:00 Intake Total 151 ml Balance 151 ml Exam Constitutional: alert, obese, oriented Psych: nl mood/affect Neck: supple, No jvd Respiratory: clear to auscultation Cardiovascular: regular rate and rhythm Gastrointestinal: soft Musculoskeletal: nl extremities to inspection Extremities: normal pulses Neurological: CONCESSION SUPERVISOR II-XII intact, nl mental status, nl speech Results Result Diagram: 11/17/16 1240 11/17/16 1050 Results 24 hrs Laboratory Tests Test 11/16/16 17:35 11/16/16 19:00 11/16/16 23:45 11/17/16 00:20 Hemoglobin 6.5 #*L 6.4 *L Hematocrit 20.8 L 20.4 L Lactic Acid Level 4.1 *H Bedside Glucose 314 H 268 H Test 11/17/16 03:18 11/17/16 08:09 11/17/16 10:50 11/17/16 11:58 Bedside Glucose 255 H 257 H White Blood Count 7.9 # Red Blood Count 2.53 L Hemoglobin 6.6 *L Hematocrit 21.2 L Mean Corpuscular Volume 83.8 Mean Corpuscular Hemoglobin 26.1 L Mean Corpuscular Hemoglobin Concent 31.1 L Red Cell Distribution Width 19.5 H Platelet Count 76 #L Mean Platelet Volume 11.6 H Neutrophils % 69.2 Lymphocytes % 17.0 Monocytes % 11.2 H Eosinophils % 1.5 Basophils % 0.3 Nucleated Red Blood Cells % 0.5 H Neutrophils # 5.5 Lymphocytes # 1.3 Monocytes # 0.9 Eosinophils # 0.1 Basophils # 0.0 Nucleated Red Blood Cells # 0.0 Sodium Level 139 Potassium Level 3.7 Chloride Level 109 Carbon Dioxide Level 25 # Anion Gap 9 # Blood Urea Nitrogen 37 #H Creatinine 1.08 Glucose Level 214 # Lactic Acid Level 1.4 Calcium Level 7.0 L Phosphorus Level 3.0 Magnesium Level 2.2 Iron Level 20 L Total Iron Binding Capacity 329 Percent Iron Saturation 6 L Total Bilirubin 2.1 H Direct Bilirubin 0.10 Indirect Bilirubin 2.0 H Aspartate Amino Transf (AST/SGOT) 63 #H Alanine Aminotransferase (ALT/SGPT) 41 Alkaline Phosphatase 46 Total Protein 5.0 #L Albumin 2.7 L Globulin 2.30 Albumin/Globulin Ratio 1.17 Lab Scanned Report BLOOD TRANSFUSION Test 11/17/16 11:58 11/17/16 12:16 11/17/16 12:40 Lab Scanned Report BLOOD TRANSFUSION Bedside Glucose 220 Hemoglobin 6.7 *L Hematocrit 21.3 L Medications Medications Current Medications Sodium Chloride (NS) 1,000 ml @ 100 mls/hr Q10H IV Last administered on t 13:34; Admin Dose 100 MLS/HR; Start 11/16/16 at 07:21 Ondansetron HCl (Zofran Inj) 4 mg Q6H PRN IV NAUSEA AND/OR VOMITING; Start at 07:30 Morphine Sulfate 2 mg 2 mg Q4H PRN IV SEVERE PAIN LEVEL 7-10; Start 11/16/16 at 07:30 Octreotide Acetate 1 mg/ Sodium Chloride 100 ml @ 5 mls/hr Q20H IV Last administered on 11/17/16 04:00; Admin Dose 5 MLS/HR; Start 11/16/16 at 08:00 Multivitamins/ Thiamine HCl/ Folic Acid/Sodium Chloride (Mvi Adult/ Vitamin B1/ Folic Acid/NS) 1,011.2 ml @ 125 mls/ hr DAILY@09 IVPB Last administered on 08:35; Admin Dose 125 MLS/HR; Start 11/16/16 at 09:00; Stop 11/18/16 at 17:06 Lorazepam (Ativan) 1 mg Q4 PRN IV CONTROL WITHDRAWAL SYMPTOMS; Start 11/16/16 at 07:30 Miscellaneous Information 1 ea NOTE XX ; Start 11/16/16 at 10:30 Glucose (Glutose) 15 gm Q15M PRN PO DECREASED GLUCOSE; Start 11/16/16 at 10:30 Glucose (Glutose) 22.5 gm Q15M PRN PO DECREASED GLUCOSE; Start 11/16/16 at 10: 30 Dextrose (D50w Syringe) 25 ml Q15M PRN IV DECREASED GLUCOSE; Start 11/16/16 at 10:30 Dextrose (D50w Syringe) 50 ml Q15M PRN IV DECREASED GLUCOSE; Start 11/16/16 at 10:30 Glucagon (Glucagen) 1 mg Q15M PRN IM DECREASED GLUCOSE; Start 11/16/16 at 10:30 Glucose (Glutose) 15 gm Q15M PRN BUCCAL DECREASED GLUCOSE; Start 11/16/16 at 10 :30 Diagnostic Test (Pha) 1 ea 1 ea 02 XX ; Start 11/17/16 at 02:00 Cefepime HCl (Maxipime 2gm/50 ml (Pmx)) 50 ml @ 100 mls/hr DAILY IVPB Last administered on 11/17/16 08:35; Admin Dose 100 MLS/HR; Start 11/16/16 at 17:00 Insulin Glargine (Lantus) 20 unit DAILY@08 SC ; Start 11/18/16 at 08:00 Ferrous Sulfate (Ferrous Sulfate (Ec)) 325 mg TID PO Last administered on 13:33; Admin Dose 325 MG; Start 11/17/16 at 13:00 Pantoprazole (Protonix Iv) 40 mg BID@06,18 IV ; Start 11/17/16 at 18:00 NAN HERNANDEZ Nov 17, 2016 15:32
[2016-11-17] MEDS: PANTOPRAZOLE 40 MG INJ IV SCH (17:24)
[2016-11-18] VITALS (11 sets, daily range): BP systolic 97–119; BP diastolic 54–69; PULSE 75–87; RESP 17–18
[2016-11-18] MEDS: ACCU-CHEK XX SCH (02:00)
[2016-11-18] MEDS: PANTOPRAZOLE 40 MG INJ IV SCH ×2 (06:22→17:10)
[2016-11-18 07:34] LABS: ADD SCAN DIFF NO
[2016-11-18 07:50] LABS: ABNORMAL IP MESSAGE 1; BASOPHILS % 0.4 % (0.0-2.0); EOSINOPHILS # 0.1 10^3/ul (0.0-0.5); HEMATOCRIT 26.5 % (42.0-52.0); HEMOGLOBIN 8.2 g/dl (14.0-18.0); LYMPHOCYTES # 1.4 10^3/ul (0.8-2.9); LYMPHOCYTES % 20.5 % (15.0-51.0); MEAN CORPUSCULAR HEMOGLOBIN 26.7 pg (29.0-33.0); MEAN CORPUSCULAR HGB CONC 30.9 g/dl (32.0-37.0); MEAN CORPUSCULAR VOLUME 86.3 fl (82.0-101.0); MEAN PLATELET VOLUME 11.8 fl (7.4-10.4); MONOCYTE # 0.8 10^3/ul (0.3-0.9); NEUTROPHIL # 4.4 10^3/ul (1.6-7.5); NEUTROPHILS % 64.2 % (39.0-77.0); NUCLEATED RED BLOOD CELLS% 0.6 /100WBC (0.0-0.0); PLATELET COUNT 68 10^3/UL (140-415); RED BLOOD COUNT 3.07 10^6/ul (4.70-6.10); WHITE BLOOD COUNT 6.9 10^3/ul (4.8-10.8)
[2016-11-18] MEDS: INSULIN ASPART [NOVOLOG] 3 ML PEN SC SCH ×7 (07:52→20:54)
[2016-11-18] MEDS: INSULIN GLARGINE [LANtus] 3 ML PEN SC SCH (07:53)
[2016-11-18 07:57] LABS: INR 1.83; PROTIME 21.3 Sec (12.2-14.2); PT RATIO 1.7
[2016-11-18 08:21] LABS: ALBUMIN 2.6 g/dl (3.3-4.9); ALBUMIN/GLOBULIN RATIO 1.04; BILIRUBIN,DIRECT 0.5 mg/dl (0.00-0.20); BILIRUBIN,INDIRECT 2.1 mg/dl (0-1.1); BILIRUBIN,TOTAL 2.6 mg/dl (0.2-1.3); CREATININE 0.95 mg/dl (0.61-1.24); POTASSIUM 3.5 mmol/L (3.5-5.1); TOTAL PROTEIN 5.1 g/dl (6.1-8.1)
[2016-11-18] MEDS: FERROUS SULFATE (EC) 325 MG TAB PO SCH ×3 (08:23→20:51)
[2016-11-18] MEDS: MULTIVITAMINS 10 ML, THIAMINE 100 MG, FOLIC ACID 1 MG in SOD CHLORIDE 0.9% 1,000 ML IVPB SCH (08:24)
[2016-11-18] MEDS: CEFEPIME 2GM/50 ML (PMX) 50 ML IVPB SCH (08:24)
[2016-11-18] MEDS: SOD CHLORIDE 0.9% 1,000 ML IV SCH ×2 (08:24→17:33)
--- NOTE | 2016-11-18 09:35 | PN ---
Date/Time of Note Date/Time of Note DATE: 11/18/16 TIME: 09:31 Assessment/Plan VTE Prophylaxis VTE Prophylaxis Intervention: contraindicated VTE Contraindication Reason: bleeding Lines/Catheters IV [facility]from [facility] Peripheral IV Urinary Cath still in place: No Assessment/Plan Assessment/Plan Assessment * Hematemesis/Anemia Hemoglobin 8.5 Esophageal varices S/P EGD banding x7 * Cirrhosis,liver CT scan Nodular appearance to the liver is consistent with cirrhosis with portal hypertension and splenomegaly, para esophageal varices are suspected. Plan * continue present management * progress diet to regular * Octreotide drip * Monitor Hemoglobin and hematocrit daily * Further orders will depend on clinical course * Case discussed with Subjective 24 Hr Interval Summary Free Text/Dictation * Course reviewed with RN * Patient seen and examined * No complaints nor hematemesis * Latest hemoglobin 8.6 Exam/Review of Systems Vital Signs Vitals Vital Signs Date Time Temp Pulse Resp B/P Pulse Ox O2 Delivery O2 Flow Rate FiO2 11/18/16 08:25 81 11/18/16 07:32 97.9 18 115/61 97 11/16/16 19:43 Nasal Cannula 11/16/16 18:51 2.0 Intake and Output 11/17/16 11/17/16 11/18/16 14:59 22:59 06:59 Intake Total 250 ml 1480 ml 1650 ml Balance 250 ml 1480 ml 1650 ml Exam Constitutional: alert, oriented Psych: no complaints Head: atraumatic, normocephalic Neck: non-tender, supple Respiratory: clear to auscultation, normal air movement Cardiovascular: nl pulses, regular rate and rhythm Gastrointestinal: nl liver, spleen, non-tender, soft Musculoskeletal: nl extremities to inspection, nl gait and stance Extremities: normal pulses Neurological: nl mental status, nl speech Skin: nl turgor, No rash or lesions Lymph: nl lymph nodes Results Result Diagram: 11/18/16 0641 11/18/16 0641 Results 24 hrs Laboratory Tests Test 11/17/16 10:50 11/17/16 11:58 11/17/16 11:58 11/17/16 12:16 White Blood Count 7.9 # Red Blood Count 2.53 L Hemoglobin 6.6 *L Hematocrit 21.2 L Mean Corpuscular Volume 83.8 Mean Corpuscular Hemoglobin 26.1 L Mean Corpuscular Hemoglobin Concent 31.1 L Red Cell Distribution Width 19.5 H Platelet Count 76 #L Mean Platelet Volume 11.6 H Neutrophils % 69.2 Lymphocytes % 17.0 Monocytes % 11.2 H Eosinophils % 1.5 Basophils % 0.3 Nucleated Red Blood Cells % 0.5 H Neutrophils # 5.5 Lymphocytes # 1.3 Monocytes # 0.9 Eosinophils # 0.1 Basophils # 0.0 Nucleated Red Blood Cells # 0.0 Sodium Level 139 Potassium Level 3.7 Chloride Level 109 Carbon Dioxide Level 25 # Anion Gap 9 # Blood Urea Nitrogen 37 #H Creatinine 1.08 Glucose Level 214 # Lactic Acid Level 1.4 Calcium Level 7.0 L Phosphorus Level 3.0 Magnesium Level 2.2 Iron Level 20 L Total Iron Binding Capacity 329 Percent Iron Saturation 6 L Total Bilirubin 2.1 H Direct Bilirubin 0.10 Indirect Bilirubin 2.0 H Aspartate Amino Transf (AST/SGOT) 63 #H Alanine Aminotransferase (ALT/SGPT) 41 Alkaline Phosphatase 46 Total Protein 5.0 #L Albumin 2.7 L Globulin 2.30 Albumin/Globulin Ratio 1.17 Lab Scanned Report BLOOD TRANSFUSION BLOOD TRANSFUSION Bedside Glucose 220 Test 11/17/16 12:40 11/17/16 17:23 11/18/16 00:02 11/18/16 06:41 Hemoglobin 6.7 *L 8.2 #L Hematocrit 21.3 L 26.5 #L Bedside Glucose 184 141 White Blood Count 6.9 Red Blood Count 3.07 #L Mean Corpuscular Volume 86.3 Mean Corpuscular Hemoglobin 26.7 L Mean Corpuscular Hemoglobin Concent 30.9 L Red Cell Distribution Width 19.0 H Platelet Count 68 L Mean Platelet Volume 11.8 H Neutrophils % 64.2 Lymphocytes % 20.5 Monocytes % 12.0 H Eosinophils % 2.0 Basophils % 0.4 Nucleated Red Blood Cells % 0.6 H Neutrophils # 4.4 Lymphocytes # 1.4 Monocytes # 0.8 Eosinophils # 0.1 Basophils # 0.0 Nucleated Red Blood Cells # 0.0 Prothrombin Time 21.3 H Prothrombin Time Ratio 1.7 INR International Normalized Ratio 1.83 Sodium Level 138 Potassium Level 3.5 Chloride Level 111 H Carbon Dioxide Level 22 Anion Gap 9 Blood Urea Nitrogen 21 #H Creatinine 0.95 Glucose Level 145 # Calcium Level 7.0 L Total Bilirubin 2.6 H Direct Bilirubin 0.50 #H Indirect Bilirubin 2.1 H Aspartate Amino Transf (AST/SGOT) 126 #H Alanine Aminotransferase (ALT/SGPT) 64 Alkaline Phosphatase 54 Total Protein 5.1 L Albumin 2.6 L Globulin 2.50 Albumin/Globulin Ratio 1.04 Test 11/18/16 07:10 11/18/16 07:43 Lab Scanned Report BLOOD TRANSFUSION Bedside Glucose 152 Medications Medications Current Medications Sodium Chloride (NS) 1,000 ml @ 100 mls/hr Q10H IV Last administered on 23:21; Admin Dose 100 MLS/HR; Start 11/16/16 at 07:21 Ondansetron HCl (Zofran Inj) 4 mg Q6H PRN IV NAUSEA AND/OR VOMITING; Start at 07:30 Morphine Sulfate 2 mg 2 mg Q4H PRN IV SEVERE PAIN LEVEL 7-10; Start 11/16/16 at 07:30 Octreotide Acetate 1 mg/ Sodium Chloride 100 ml @ 5 mls/hr Q20H IV Last administered on 11/18/16 00:00; Admin Dose 5 MLS/HR; Start 11/16/16 at 08:00 Multivitamins/ Thiamine HCl/ Folic Acid/Sodium Chloride (Mvi Adult/ Vitamin B1/ Folic Acid/NS) 1,011.2 ml @ 125 mls/ hr DAILY@09 IVPB Last administered on 08:24; Admin Dose 125 MLS/HR; Start 11/16/16 at 09:00; Stop 11/18/16 at 17:06 Lorazepam (Ativan) 1 mg Q4 PRN IV CONTROL WITHDRAWAL SYMPTOMS; Start 11/16/16 at 07:30 Miscellaneous Information 1 ea NOTE XX ; Start 11/16/16 at 10:30 Glucose (Glutose) 15 gm Q15M PRN PO DECREASED GLUCOSE; Start 11/16/16 at 10:30 Glucose (Glutose) 22.5 gm Q15M PRN PO DECREASED GLUCOSE; Start 11/16/16 at 10: 30 Dextrose (D50w Syringe) 25 ml Q15M PRN IV DECREASED GLUCOSE; Start 11/16/16 at 10:30 Dextrose (D50w Syringe) 50 ml Q15M PRN IV DECREASED GLUCOSE; Start 11/16/16 at 10:30 Glucagon (Glucagen) 1 mg Q15M PRN IM DECREASED GLUCOSE; Start 11/16/16 at 10:30 Glucose (Glutose) 15 gm Q15M PRN BUCCAL DECREASED GLUCOSE; Start 11/16/16 at 10 :30 Diagnostic Test (Pha) 1 ea 1 ea 02 XX ; Start 11/17/16 at 02:00 Cefepime HCl (Maxipime 2gm/50 ml (Pmx)) 50 ml @ 100 mls/hr DAILY IVPB Last administered on 11/18/16 08:24; Admin Dose 100 MLS/HR; Start 11/16/16 at 17:00 Insulin Glargine (Lantus) 20 unit DAILY@08 SC Last administered on 11/18/16 07 :53; Admin Dose 20 UNIT; Start 11/18/16 at 08:00 Ferrous Sulfate (Ferrous Sulfate (Ec)) 325 mg TID PO Last administered on 08:23; Admin Dose 325 MG; Start 11/17/16 at 13:00 Pantoprazole (Protonix Iv) 40 mg BID@06,18 IV Last administered on 11/18/16 06 :22; Admin Dose 40 MG; Start 11/17/16 at 18:00 PHIL FRANKLIN NP Nov 18, 2016 09:35
[2016-11-18 09:49] LABS: HEMATOCRIT 25.8 % (42.0-52.0); HEMOGLOBIN 8.1 g/dl (14.0-18.0)
--- NOTE | 2016-11-18 14:59 | PN ---
Date/Time of Note Date/Time of Note DATE: 11/18/16 TIME: 14:43 Assessment/Plan VTE Prophylaxis VTE Prophylaxis Intervention: SCD's Lines/Catheters IV Catheter Type (from [facility]): Peripheral IV Urinary Cath still in place: No Assessment/Plan Chief Complaint/Hosp Course Assessment and plan 1. Hematemesis suspect secondary to esophageal varices. Patient with alcohol abuse. [employer] following. Status post EGD with banding of varices. Stable at present. Will monitor H&H 2. Severe anemia secondary to #1. Status post infusion. Will monitor H&H trend 3. Liver cirrhosis secondary to alcohol abuse. Cessation was advised. Of note patient did have nodular appearance of liver consistent with cirrhosis and portal hypertension and paraesophageal varices 4. Leukocytosis. . Likely reactive. Improving at present. Continue on antibiotic 5. Hyperglycemia. Will adjust insulin regimen. Will get clinical unit educator. Follow-up on A1c level 6. Lactic acidosis suspect secondary to #1. Improved at present. Will monitor 7. Iron deficiency anemia. Will provide with iron supplement Disposition plan: Suzanne appears more stable today. Will monitor trend. Anticipate discharge within the next 24 hours if remains stable. Discussed plan of care with Dr. Block Problems: Subjective 24 Hr Interval Summary Free Text/Dictation No apparent distress and at this time. Comfortable at present Exam/Review of Systems Vital Signs Vitals Vital Signs Date Time Temp Pulse Resp B/P Pulse Ox O2 Delivery O2 Flow Rate FiO2 11/18/16 12:20 76 11/18/16 11:51 97.6 18 119/69 100 11/16/16 19:43 Nasal Cannula 11/16/16 18:51 2.0 Intake and Output 11/17/16 11/17/16 11/18/16 15:00 23:00 07:00 Intake Total 250 ml 1480 ml 1650 ml Balance 250 ml 1480 ml 1650 ml Exam Constitutional: alert, obese, oriented Head: normocephalic Eyes: nl conjunctiva Neck: supple, No jvd Respiratory: clear to auscultation, normal air movement Cardiovascular: nl pulses, regular rate and rhythm Gastrointestinal: non-tender, soft Musculoskeletal: nl extremities to inspection Neurological: [employer] II-XII intact, nl mental status, nl speech Results Result Diagram: 11/18/16 0925 11/18/16 0641 Results 24 hrs Laboratory Tests Test 11/17/16 17:23 11/18/16 00:02 11/18/16 06:41 11/18/16 07:10 Bedside Glucose 184 141 White Blood Count 6.9 Red Blood Count 3.07 #L Hemoglobin 8.2 #L Hematocrit 26.5 #L Mean Corpuscular Volume 86.3 Mean Corpuscular Hemoglobin 26.7 L Mean Corpuscular Hemoglobin Concent 30.9 L Red Cell Distribution Width 19.0 H Platelet Count 68 L Mean Platelet Volume 11.8 H Neutrophils % 64.2 Lymphocytes % 20.5 Monocytes % 12.0 H Eosinophils % 2.0 Basophils % 0.4 Nucleated Red Blood Cells % 0.6 H Neutrophils # 4.4 Lymphocytes # 1.4 Monocytes # 0.8 Eosinophils # 0.1 Basophils # 0.0 Nucleated Red Blood Cells # 0.0 Prothrombin Time 21.3 H Prothrombin Time Ratio 1.7 INR International Normalized Ratio 1.83 Sodium Level 138 Potassium Level 3.5 Chloride Level 111 H Carbon Dioxide Level 22 Anion Gap 9 Blood Urea Nitrogen 21 #H Creatinine 0.95 Glucose Level 145 # Calcium Level 7.0 L Total Bilirubin 2.6 H Direct Bilirubin 0.50 #H Indirect Bilirubin 2.1 H Aspartate Amino Transf (AST/SGOT) 126 #H Alanine Aminotransferase (ALT/SGPT) 64 Alkaline Phosphatase 54 Total Protein 5.1 L Albumin 2.6 L Globulin 2.50 Albumin/Globulin Ratio 1.04 Lab Scanned Report BLOOD TRANSFUSION Test 11/18/16 07:43 11/18/16 09:25 11/18/16 11:56 Bedside Glucose 152 146 Hemoglobin 8.1 L Hematocrit 25.8 L Medications Medications Current Medications Sodium Chloride (NS) 1,000 ml @ 100 mls/hr Q10H IV Last administered on 23:21; Admin Dose 100 MLS/HR; Start 11/16/16 at 07:21 Ondansetron HCl (Zofran Inj) 4 mg Q6H PRN IV NAUSEA AND/OR VOMITING; Start at 07:30 Morphine Sulfate 2 mg 2 mg Q4H PRN IV SEVERE PAIN LEVEL 7-10; Start 11/16/16 at 07:30 Octreotide Acetate 1 mg/ Sodium Chloride 100 ml @ 5 mls/hr Q20H IV Last administered on 11/18/16 00:00; Admin Dose 5 MLS/HR; Start 11/16/16 at 08:00 Multivitamins/ Thiamine HCl/ Folic Acid/Sodium Chloride (Mvi Adult/ Vitamin B1/ Folic Acid/NS) 1,011.2 ml @ 125 mls/ hr DAILY@09 IVPB Last administered on 08:24; Admin Dose 125 MLS/HR; Start 11/16/16 at 09:00; Stop 11/18/16 at 17:06 Lorazepam (Ativan) 1 mg Q4 PRN IV CONTROL WITHDRAWAL SYMPTOMS; Start 11/16/16 at 07:30 Miscellaneous Information 1 ea NOTE XX ; Start 11/16/16 at 10:30 Glucose (Glutose) 15 gm Q15M PRN PO DECREASED GLUCOSE; Start 11/16/16 at 10:30 Glucose (Glutose) 22.5 gm Q15M PRN PO DECREASED GLUCOSE; Start 11/16/16 at 10: 30 Dextrose (D50w Syringe) 25 ml Q15M PRN IV DECREASED GLUCOSE; Start 11/16/16 at 10:30 Dextrose (D50w Syringe) 50 ml Q15M PRN IV DECREASED GLUCOSE; Start 11/16/16 at 10:30 Glucagon (Glucagen) 1 mg Q15M PRN IM DECREASED GLUCOSE; Start 11/16/16 at 10:30 Glucose (Glutose) 15 gm Q15M PRN BUCCAL DECREASED GLUCOSE; Start 11/16/16 at 10 :30 Diagnostic Test (Pha) 1 ea 1 ea 02 XX ; Start 11/17/16 at 02:00 Cefepime HCl (Maxipime 2gm/50 ml (Pmx)) 50 ml @ 100 mls/hr DAILY IVPB Last administered on 11/18/16 08:24; Admin Dose 100 MLS/HR; Start 11/16/16 at 17:00 Insulin Glargine (Lantus) 20 unit DAILY@08 SC Last administered on 11/18/16 07 :53; Admin Dose 20 UNIT; Start 11/18/16 at 08:00 Ferrous Sulfate (Ferrous Sulfate (Ec)) 325 mg TID PO Last administered on 12:10; Admin Dose 325 MG; Start 11/17/16 at 13:00 Pantoprazole (Protonix Iv) 40 mg BID@06,18 IV Last administered on 11/18/16 06 :22; Admin Dose 40 MG; Start 11/17/16 at 18:00 NAN HERNANDEZ Nov 18, 2016 14:59
[2016-11-18] MEDS: OCTREOTIDE 1 MG in SOD CHLORIDE 0.9% 95 ML IV SCH ×3 (20:51)
[2016-11-19] VITALS (8 sets, daily range): BP systolic 116–138; BP diastolic 62–77; PULSE 69–79; RESP 18
[2016-11-19] MEDS: ACCU-CHEK XX SCH (02:00)
[2016-11-19] MEDS: SOD CHLORIDE 0.9% 1,000 ML IV SCH ×2 (06:30→14:11)
[2016-11-19] MEDS: PANTOPRAZOLE 40 MG INJ IV SCH (06:30)
[2016-11-19] MEDS: INSULIN ASPART [NOVOLOG] 3 ML PEN SC SCH ×4 (08:00→11:42)
[2016-11-19] MEDS: CEFEPIME 2GM/50 ML (PMX) 50 ML IVPB SCH (08:40)
[2016-11-19] MEDS: FERROUS SULFATE (EC) 325 MG TAB PO SCH ×2 (08:40→12:16)
[2016-11-19] MEDS: INSULIN GLARGINE [LANtus] 3 ML PEN SC SCH (08:41)
--- NOTE | 2016-11-19 10:17 | PN ---
Date/Time of Note Date/Time of Note DATE: 11/19/16 TIME: 10:13 Assessment/Plan VTE Prophylaxis VTE Prophylaxis Intervention: contraindicated VTE Contraindication Reason: bleeding Lines/Catheters [facility] Peripheral IV Urinary Cath still in place: No Assessment/Plan Assessment/Plan Assessment * Hematemesis resolved/Anemia hemoglobin 8.1 Esophageal varices S/P EGD banding x7 * Cirrhosis,liver CT scan Nodular appearance to the liver is consistent with cirrhosis with portal hypertension and splenomegaly, para esophageal varices are suspected. Plan * continue present management * progress diet to regular * d/c Octreotide drip * stable for outpatient management * Case discussed with Subjective 24 Hr Interval Summary Free Text/Dictation * Course reviewed with RN * Patient seen and examined * no bleeding * emphasize abstinence of alcohol to patient Exam/Review of Systems Vital Signs Vitals Vital Signs Date Time Temp Pulse Resp B/P Pulse Ox O2 Delivery O2 Flow Rate FiO2 11/19/16 08:06 73 11/19/16 07:27 98.3 18 117/62 96 11/16/16 19:43 Nasal Cannula 11/16/16 18:51 2.0 Intake and Output 11/18/16 11/18/16 11/19/16 15:00 23:00 07:00 Intake Total 190 ml 1931.2 ml 1260 ml Output Total 500 ml Balance 190 ml 1931.2 ml 760 ml Exam Constitutional: alert, oriented Head: normocephalic Neck: non-tender, supple Respiratory: clear to auscultation Cardiovascular: nl pulses, regular rate and rhythm Gastrointestinal: nl liver, spleen, non-tender, soft Musculoskeletal: nl extremities to inspection Extremities: normal pulses Neurological: nl mental status Results Result Diagram: 11/18/16 0925 11/18/16 0641 Results 24 hrs Laboratory Tests Test 11/18/16 11:56 11/18/16 16:59 11/18/16 20:53 11/19/16 07:58 Bedside Glucose 146 120 134 131 Medications Medications Current Medications Sodium Chloride (NS) 1,000 ml @ 100 mls/hr Q10H IV Last administered on t 06:30; Admin Dose 100 MLS/HR; Start 11/16/16 at 07:21 Ondansetron HCl (Zofran Inj) 4 mg Q6H PRN IV NAUSEA AND/OR VOMITING; Start at 07:30 Morphine Sulfate 2 mg 2 mg Q4H PRN IV SEVERE PAIN LEVEL 7-10; Start 11/16/16 at 07:30 Octreotide Acetate/Sodium Chloride (Sandostatin/NS) 100 ml @ 5 mls/hr Q20H IV Last administered on 11/18/16 20:51; Admin Dose 5 MLS/HR; Start 11/16/16 at 08: 00 Lorazepam (Ativan) 1 mg Q4 PRN IV CONTROL WITHDRAWAL SYMPTOMS; Start 11/16/16 at 07:30 Miscellaneous Information 1 ea NOTE XX ; Start 11/16/16 at 10:30 Glucose (Glutose) 15 gm Q15M PRN PO DECREASED GLUCOSE; Start 11/16/16 at 10:30 Glucose (Glutose) 22.5 gm Q15M PRN PO DECREASED GLUCOSE; Start 11/16/16 at 10: 30 Dextrose (D50w Syringe) 25 ml Q15M PRN IV DECREASED GLUCOSE; Start 11/16/16 at 10:30 Dextrose (D50w Syringe) 50 ml Q15M PRN IV DECREASED GLUCOSE; Start 11/16/16 at 10:30 Glucagon (Glucagen) 1 mg Q15M PRN IM DECREASED GLUCOSE; Start 11/16/16 at 10:30 Glucose (Glutose) 15 gm Q15M PRN BUCCAL DECREASED GLUCOSE; Start 11/16/16 at 10 :30 Diagnostic Test (Pha) 1 ea 1 ea 02 XX ; Start 11/17/16 at 02:00 Cefepime HCl (Maxipime 2gm/50 ml (Pmx)) 50 ml @ 100 mls/hr DAILY IVPB Last administered on 11/19/16 08:40; Admin Dose 100 MLS/HR; Start 11/16/16 at 17:00 Insulin Glargine (Lantus) 20 unit DAILY@08 SC Last administered on 11/19/16 08 :41; Admin Dose 20 UNIT; Start 11/18/16 at 08:00 Ferrous Sulfate (Ferrous Sulfate (Ec)) 325 mg TID PO Last administered on 08:40; Admin Dose 325 MG; Start 11/17/16 at 13:00 Pantoprazole (Protonix Iv) 40 mg BID@18 IV Last administered on 11/19/16 06 :30; Admin Dose 40 MG; Start 11/17/16 at 18:00 PHIL FRANKLIN NP Nov 19, 2016 10:17 PHIL FRANKLIN NP Nov 19, 2016 10:17
[2016-11-19 10:39] LABS: ADD SCAN DIFF NO
[2016-11-19 10:42] LABS: ABNORMAL IP MESSAGE 1; BASOPHILS % 0.3 % (0.0-2.0); EOSINOPHILS # 0.2 10^3/ul (0.0-0.5); EOSINOPHILS % 2.7 % (0.0-7.0); HEMATOCRIT 26.9 % (42.0-52.0); HEMOGLOBIN 8.4 g/dl (14.0-18.0); LYMPHOCYTES % 16.9 % (15.0-51.0); MEAN CORPUSCULAR HEMOGLOBIN 27.2 pg (29.0-33.0); MEAN CORPUSCULAR HGB CONC 31.2 g/dl (32.0-37.0); MEAN CORPUSCULAR VOLUME 87.1 fl (82.0-101.0); MEAN PLATELET VOLUME 11.9 fl (7.4-10.4); MONOCYTE # 0.8 10^3/ul (0.3-0.9); MONOCYTES % 12.9 % (0.0-11.0); NEUTROPHILS % 66.5 % (39.0-77.0); NUCLEATED RED BLOOD CELLS% 0.5 /100WBC (0.0-0.0); PLATELET COUNT 79 10^3/UL (140-415); RED BLOOD COUNT 3.09 10^6/ul (4.70-6.10); RED CELL DISTRIBUTION WIDTH 19.5 % (11.5-14.5)
[2016-11-19] MEDS ORDERED: LANT3I SC (14:52)
[2016-11-19] MEDS ORDERED: FER325 PO (14:52)
[2016-11-19] MEDS ORDERED: DOCU-144 PO (14:52)
[2016-11-19] MEDS ORDERED: NOVO3I SC (14:52)
--- NOTE | 2016-11-19 14:55 | PDOCDIS ---
Discharge Instructions DIAGNOSIS Discharge Diagnosis 1. Hematemesis secondary to esophageal varices 2. Anemia secondary to #1 3. Liver cirrhosis secondary to alcohol abuse 4. New-onset diabetes with A1c greater than 14 5. Iron deficiency anemia HOME CARE INSTRUCTIONS: Diet Instructions: Reduced CalorieSpecial Diet: Carbohydrate controlled FOLLOW UP/APPOINTMENTS Follow-up Plan Follow-up with her primary care provider within a week OTHER ORDERS: Other Orders: 1. Stop drinking alcohol NAN HERNANDEZ Nov 19, 2016 14:54
[2016-11-19] MEDS ORDERED: LORAZEPAM 1 MG TAB PO PRN (16:30)
[2016-11-20] MEDS ORDERED: PANTOPRAZOLE (EC) 40 MG TAB PO SCH (06:00)
== END 2016-11-19 17:54 | disposition home or self-care (01) | DRG 432 ==
LOC: E/R 22:03 → MS4 11-16 00:54
PROVIDERS: ADMIT Internal Medicine; ATTEND Internal Medicine
PROC: 30253N1 (ICD-10-PCS; 2016-11-16)
PROC: 0W3P8ZZ Control Bleeding in Gastrointestinal Tract, Via Natural or Artificial Opening Endoscopic (ICD-10-PCS; principal; 2016-11-16 18:00)
PROC: 0DB68ZX Excision of Stomach, Via Natural or Artificial Opening Endoscopic, Diagnostic (ICD-10-PCS; 2016-11-16 18:00)
DX: K70.30 Alcoholic cirrhosis of liver without ascites (principal); I85.11 Secondary esophageal varices with bleeding; K76.6 Portal hypertension; E87.2 Acidosis; D62 Acute posthemorrhagic anemia; R16.1 Splenomegaly, not elsewhere classified; K92.1 Melena; F10.10 Alcohol abuse, uncomplicated; R73.9 Hyperglycemia, unspecified; K29.70 Gastritis, unspecified, without bleeding
CPT/HCPCS: 36415; 36430; 36600; 71010; 74176; 80053; 82803; 82962; 83036; 83540; 83605; 83690; 83735; 84100; 84484; 85014; 85018; 85025; 85610; 86850; 86900; 86901; 86920; 87040; 87086; 88305; 88312; 93005; 96361; 96374; 96375; 96376; C9113; J0692; J1815; J2250; J2270; J2405; J3411; J7030; J7040; P9016